=== PATIENT | male | born 1955 | race American Indian/Alaskan Native ===

== ENCOUNTER 2016-05-27 05:05 | Emergency (ER) | payer OTHER ==
[2016-05-27 05:40] VITALS: BP 156/96
--- NOTE | 2016-05-27 08:13 | Emergency Department Report ---
ED Back Pain/Injury HPI - General Chief Complaint: Back Pain/Injury Stated Complaint: BACK INJURY Time Seen by Provider: 05/27/16 08:04 Source: patient Limitations: No Limitations - History of Present Illness Initial Comments: Patient injured his mid-back last night while attempting to pull a rosa from underneath the wings of an aircraft. He denies any numbness, tingling or weakness MD Complaint: back injury Onset/Timin -: hour(s) Similar Symptoms Previously: Yes (history of herniated disk) Place: work Radiation: none Severity: severe Severity scale (0 -10): 10 Quality: aching Consistency: constant Improves With: immobilization Worsens With: movement Context: turning/twisting Associated Symptoms: denies other symptoms Treatments Prior to Arrival: other (none) - Related Data Home Medications Medication Instructions Recorded Confirmed Last Taken Ibuprofen [Motrin 800 MG tab] 1 tab PO TID 05/27/16 05/27/16 Unknown Lisinopril 5 mg PO DAILY 05/27/16 05/27/16 Unknown amLODIPine 10 mg PO DAILY 05/27/16 05/27/16 Unknown Previous Rx's Medication Instructions Recorded Last Taken Type Ibuprofen [Motrin 800 MG tab] 800 mg PO Q8HR PRN #30 tablet 05/27/16 Unknown Rx Allergies Allergy/AdvReac Type Severity Reaction Status Date / Time No Known Allergies Allergy Unverified 05/27/16 05:40 ED Review of Systems ROS: Stated complaint: BACK INJURY Other details as noted in HPI Constitutional: denies: chills, diaphoresis, fever, malaise, weakness Respiratory: denies: cough, orthopnea, shortness of breath, SOB with exertion, SOB at rest, stridor, wheezing Cardiovascular: denies: chest pain, palpitations, dyspnea on exertion, orthopnea , edema, syncope, paroxysmal nocturnal dyspnea Gastrointestinal: denies: abdominal pain, nausea, vomiting, diarrhea, constipation Genitourinary: denies: urgency, dysuria, frequency, hematuria, discharge, testicular pain, testicular mass Musculoskeletal: back pain (low). denies: joint swelling, arthralgia, myalgia Skin: denies: rash, lesions, change in color, change in hair/nails, pruritus Neurological: denies: headache, weakness, numbness, paresthesias, confusion, abnormal gait, vertigo Hematological/Lymphatic: denies: easy bleeding, easy bruising, swollen glands ED Past Medical Hx - Past Medical History Hx Hypertension: Yes Hx Arthritis: Yes Additional medical history: Herniated Disc C3 and C4, and Lumbar Spine. - Surgical History Additional Surgical History: Vasectomy, Toncillectomy - Social History Smoking Status: Never Smoker Substance Use Type: None - Medications Home Medications: Home Medications Medication Instructions Recorded Confirmed Last Taken Type Ibuprofen [Motrin 800 MG tab] 1 tab PO TID 05/27/16 05/27/16 Unknown History Ibuprofen [Motrin 800 MG tab] 800 mg PO Q8HR PRN #30 tablet 05/27/16 Unknown Rx Lisinopril 5 mg PO DAILY 05/27/16 05/27/16 Unknown History amLODIPine 10 mg PO DAILY 05/27/16 05/27/16 Unknown History ED Physical Exam - General Limitations: No Limitations General appearance: alert, in no apparent distress - Head Head exam: Present: atraumatic, normocephalic - Eye Eye exam: Present: normal appearance, PERRL, EOMI Pupils: Present: normal accommodation - ENT ENT exam: Present: normal exam - Neck Neck exam: Present: normal inspection, full ROM. Absent: tenderness, meningismus, lymphadenopathy, thyromegaly - Respiratory Respiratory exam: Present: normal lung sounds bilaterally. Absent: respiratory distress, wheezes, rales, rhonchi, stridor, chest wall tenderness, accessory muscle use, decreased breath sounds, prolonged expiratory - Cardiovascular Cardiovascular Exam: Present: regular rate, normal rhythm, normal heart sounds. Absent: systolic murmur, diastolic murmur, rubs, gallop - GI/Abdominal GI/Abdominal exam: Present: soft, normal bowel sounds. Absent: distended, tenderness - Extremities Exam Extremities exam: Present: normal inspection, full ROM, normal capillary refill. Absent: tenderness, pedal edema, joint swelling, calf tenderness - Back Exam Back exam: Present: full ROM, tenderness (T & L spine with palpation). Absent: CVA tenderness (R), CVA tenderness (L), muscle spasm, paraspinal tenderness, vertebral tenderness, rash noted - Neurological Exam Neurological exam: Present: alert, oriented X3, CN II-XII intact, normal gait, reflexes normal. Absent: motor sensory deficit - Psychiatric Psychiatric exam: Present: normal affect, normal mood - Skin Skin exam: Present: warm, dry, intact, normal color. Absent: rash ED Course Vital Signs 05/27/16 05:16 Temperature 98.3 F Pulse Rate 84 Respiratory 16 Rate Blood Pressure 156/96 Blood Pressure 156/96 [Left] O2 Sat by Pulse 100 Oximetry - Reevaluation(s) Reevaluation #1: 05/27/16 08:08 radiology studies ordered ED Medical Decision Making - Lab Data Vital Signs 05/27/16 05:16 Temperature 98.3 F Pulse Rate 84 Respiratory 16 Rate Blood Pressure 156/96 Blood Pressure 156/96 [Left] O2 Sat by Pulse 100 Oximetry - Radiology Data Radiology results: image reviewed LUMBAR SPINE RADIOGRAPHS: INDICATION: Back injury. COMPARISON: None similar at this institution. FINDINGS: AP and lateral lumbar spine radiographs demonstrate grossly preserved vertebral body stature, alignment and disc heights. Slight lower thoracic spinal curvature possibly incompletely imaged versus positional. Mid to lower lumbar facet arthropathy also suspected. Nonobstructive bowel gas pattern. Intact bilateral SI joints with sclerosis inferiorly along the iliac aspects. Clear visualized lung bases. CONCLUSION: No acute lumbar radiographic abnormality with few degenerative changes noted, as above. Please correlate. - Medical Decision Making During the course of ED, all other systems are unremarkable except for documentation in HPI. The radiology studies revealed no acute lumbar radiographic abnormality with few degenerative changes noted. The patient was sent home with a prescription for Ibuprofen, instructed to follow up with the selective referral given at discharge, he verbalized understanding - Differential Diagnosis Back Pain, Musculoskeletal Pain Critical care attestation.: If time is entered above; I have spent that time in minutes in the direct care of this critically ill patient, excluding procedure time. ED Disposition Clinical Impression: Back pain Qualifiers: Back pain location: thoracic back pain Chronicity: acute Back pain laterality: midline Qualified Code(s): M54.6 - Pain in thoracic spine Disposition: DISCHARGED TO HOME OR SELFCARE Is pt being admited?: No Does the pt Need Aspirin: No Condition: Stable Instructions: Back Pain (ED) Additional Instructions: Take medication as directed. Follow up with the selective referral given at discharge. Return back to the ED for worsening symptoms or concerns Prescriptions: Ibuprofen [Motrin 800 MG tab] 800 mg PO Q8HR PRN #30 tablet PRN Reason: Pain Referrals: JOSE TAYLOR MD [Primary Care Provider] - 3-5 Days ESTEPHANIA JACKSON MD [Staff Physician] - 3-5 Days Forms: Work/School Release Form Time of Disposition: 08:26
== END 2016-05-27 08:40 | disposition home or self-care (01) ==
LOC: ED 05:05
DX: M54.6 Pain in thoracic spine (principal); I10 Essential (primary) hypertension; X58.XXXA Exposure to other specified factors, initial encounter; Y93.9 Activity, unspecified; Y92.9 Unspecified place or not applicable; Y99.9 Unspecified external cause status
CPT/HCPCS: 72100; 99283